=== PATIENT | female | born 1935 | race Caucasian/White ===

== ENCOUNTER 2016-08-23 03:30 | Emergency (ER) | payer MEDICARE, OTHER ==
[~2016-08-23] VITALS: Ht 170.2 cm; Wt 80.0 kg
[2016-08-23 03:36] VITALS: BP 136/64; PULSE 75; RESP 16; TEMP 97.9; O2SAT 92
[2016-08-23] MEDS ORDERED: BLOOD PRESSURE MED (03:42)
[2016-08-23] MEDS ORDERED: THYROID MEDICATION (03:42)
[2016-08-23] MEDS ORDERED: SODIUM CHLOR 0.9% 1000 ML INJ 1,000 ML IV SCH (04:03)
[2016-08-23 04:11] VITALS: RESP 16; O2SAT 94; O2SAT 98
[2016-08-23] MEDS ORDERED: SODIUM CHLORIDE 0.9% FLUSH 10 ML FLUSH IV FLUSH PRN (04:15)
[2016-08-23] MEDS ORDERED: FAMOTIDINE 20 MG/2 ML VIAL IV PUSH ONE (04:15)
[2016-08-23] MEDS ORDERED: ONDANSETRON HCL 4 MG/2 ML VIAL IVP ONE (04:15)
[2016-08-23] MEDS ORDERED: MORPHINE SULFATE 4 MG/ML INJ IV PUSH ONE (04:15)
[2016-08-23 04:24] LABS: AUTOMATED NEUTROPHIL # 7.2 TH/MM3 (1.8-7.7); BASOPHIL # 0.1 TH/MM3 (0-0.2); BASOPHIL % 0.5 % (0.0-2.0); EOSINOPHIL # 0.4 TH/MM3 (0-0.4); EOSINOPHIL % 3.4 % (0.0-4.0); HEMATOCRIT 37.6 % (35.0-46.0); HEMO FLAGS DIFF FINAL; LYMPHOCYTE # 3.4 TH/MM3 (1.0-4.8); MEAN CORPUSCULAR HEMOGLOBIN 27.4 PG (27.0-34.0); MEAN CORPUSCULAR HGB CONC 32.3 % (32.0-36.0); MONO % 3.5 % (0.0-8.0); NEUT % 62.6 % (16.0-70.0); PLATELET COUNT 266 TH/MM3 (150-450); RED BLOOD COUNT 4.43 MIL/MM3 (4.00-5.30); RED CELL DISTRIBUTION WIDTH 13.8 % (11.6-17.2); WHITE BLOOD COUNT 11.4 TH/MM3 (4.0-11.0)
[2016-08-23 04:34] LABS: APTT (PATIENT) 22.9 SEC (24.3-30.1); PROTHROMBIN TIME - PATIENT 10.6 SEC (9.8-11.6)
[2016-08-23 04:50] LABS: POTASSIUM 3.3 MEQ/L (3.5-5.1)
--- NOTE | 2016-08-23 06:07 | RADRPT ---
EXAM DATE/TIME: 08/23/2016 05:03 [place] COMPARISON: No previous studies available for comparison. INDICATIONS : Medial upper quadrant abdomen pain. ORAL CONTRAST: No oral contrast ingested. RADIATION DOSE: 9.96 CTDIvol (mGy) MEDICAL HISTORY : None SURGICAL HISTORY : None. ENCOUNTER: Initial ACUITY: 1 day PAIN SCALE: 8/10 LOCATION: upper quadrant abdomen TECHNIQUE: Volumetric scanning of the abdomen and pelvis was performed. Using automated exposure control and ad justment of the mA and/or kV according to patient size, radiation dose was kept as low as reasonably achievable to obtain optimal diagnostic quality images. DICOM format image data is available electro nically for review and comparison. FINDINGS: LOWER LUNGS: Linear atelectatic changes or scarring in the left base with patchy airspace disease in the right bas e LIVER: Homogeneous density without lesion. There is no dilation of the biliary tree. Patient is status post cholecystectomy. SPLEEN: Normal size without lesion. PANCREAS: Within normal limits. KIDNEYS: Normal in size and shape. There is no mass, stone, or hydronephrosis. Multiple left-sided renal cyst s, the largest in the lower pole measuring 6.5 cm in diameter ADRENAL GLANDS: Within normal limits. VASCULAR: There is no aortic aneurysm. 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 ABDOMINAL WALL: Within normal limits. RETROPERITONEUM: There is no lymphadenopathy. BLADDER: No wall thickening or mass. REPRODUCTIVE: Within normal limits. INGUINAL: There is no lymphadenopathy or hernia. MUSCULOSKELETAL: Within normal limits for patient age. CONCLUSION: 1. "Karyna mesentery". A nonspecific finding that can be seen in entities such as mesenteritis. 2. Patchy airspace disease in the right base could represent an early infiltrate. This can be the cristal ology for referred upper abdominal pain. 3. Diverticula disease of the sigmoid without diverticulitis. 4. Multiple left-sided renal cortical cysts Richi Chavarria MD on August 23, 2016 at 5:42 Board Certified Radiologist. This report was verified electronically.
[2016-08-23 06:29] LABS: BACTERIA, URINE RARE /hpf; BLOOD, URINE TRACE (NEG); COMMENT (UR) CULTURE INDICATED; CULTURE IF INDICATED CULTURE INDICATED; GLUCOSE,URINE NEG (NEG); HYALINE CAST, URINE 1 /lpf (RARE); KETONE, URINE NEG (NEG); MUCUS URINE FEW /lpf (OCC); NITRITE,URINE NEG (NEG); SQUAMOUS EPITHELIAL CELL URINE 1 /hpf (0-5); URINE COLOR YELLOW (YELLW/STRAW)
[2016-08-23] MEDS ORDERED: ZITHTAB PO (06:43)
--- NOTE | 2016-08-23 06:43 | PD ---
HPI Chief Complaint: GI Complaint Time Seen by Provider: 03:57 Travel History International Travel<30 days: No Contact w/Intl Traveler<30days: No Traveled to known affect area: No History of Present Illness HPI Patient is a 80 year old female who comes in complaining of nausea, vomiting and diarrhea. She says her symptoms started after eating some left over food. She says her abdomen hurts all over. She says she was feeling well prior to this starting tonight. She denies chest pain or SOB. She denies fever or chills. PFSH Past Medical History Medical History: Unable to Obtain Diminished Hearing: No Tetanus Vaccination: Never Vaccinated Influenza Vaccination: No Past Surgical History Surgical History: No Previous Surgery Social History Alcohol Use: No Tobacco Use: No Substance Use: No Allergies-Medications (Allergen,Severity, Reaction): Coded Allergies: Sulfa (Verified Allergy, Unknown, 08/23/16) Reported Meds & Prescriptions Reported Meds & Active Scripts Active Zithromax Z-Angel (Azithromycin) 250 Mg Dspk 250 Mg PO DIRECTED 500 MG (2 tabs) day 1, then 1 tab days 2-5. Reported [Blood Pressure Med] [Thyroid Medication] Review of Systems Except as stated in HPI: all other systems reviewed are Neg General / Constitutional: No: Fever, Chills HENT: No: Headaches, Lightheadedness Cardiovascular: No: Chest Pain or Discomfort Respiratory: No: Shortness of Breath Gastrointestinal: Positive: Nausea, Vomiting, Diarrhea, Abdominal Pain Genitourinary: No: Dysuria Skin: No Rash, No Change in Pigmentation Neurologic: No: Weakness, Dizziness Physical Exam Narrative GENERAL: Awake and alert, in obvious discomfort. SKIN: Focused skin assessment warm/dry. HEAD: Atraumatic. Normocephalic. EYES: Pupils equal and round. No scleral icterus. ENT: Mucous membranes pink and moist. NECK: Trachea midline. No JVD. CARDIOVASCULAR: Regular rate and rhythm. No murmur appreciated. RESPIRATORY: No accessory muscle use. Clear to auscultation. Breath sounds equal bilaterally. GASTROINTESTINAL: Abdomen soft, nondistended. Minimal pain in the abdomen on palpation, mostly in the epigastric area. No rebound or guarding. MUSCULOSKELETAL: No obvious deformities. No clubbing. No cyanosis. No edema. NEUROLOGICAL: Awake and alert. No obvious cranial nerve deficits. Motor grossly within normal limits. Normal speech. PSYCHIATRIC: Appropriate mood and affect; insight and judgment normal. Data Data Last Documented VS Orders Basic Metabolic Panel (Bmp) (08/23/16 04:03) Complete Blood Count With Diff (08/23/16 04:03) Lipase (08/23/16 04:03) Lactic Acid (08/23/16 04:03) Prothrombin Time / Inr (Pt) (08/23/16 04:03) Act Partial Throm Time (Ptt) (08/23/16 04:03) Urinalysis - C+S If Indicated (08/23/16 04:03) Ua Includes Microscopic (08/23/16 04:03) Iv Access Insert/Monitor (08/23/16 04:03) Ecg Monitoring (08/23/16 04:03) Oximetry (08/23/16 04:03) Morphine Inj (Morphine Inj) (08/23/16 04:15) Ondansetron Inj (Zofran Inj) (08/23/16 04:15) Sodium Chlor 0.9% 1000 Ml Inj (Ns 1000 M (08/23/16 04:03) Sodium Chloride 0.9% Flush (Ns Flush) (08/23/16 04:15) Electrocardiogram (08/23/16 04:03) Famotidine Inj (Pepcid Inj) (08/23/16 04:15) Ct Abd/Pel W/O Iv Contrast (08/23/16 ) Urine Culture (08/23/16 05:55) Labs Laboratory Tests Test 08/23/16 08/23/16 04:10 05:55 White Blood Count 11.4 TH/MM3 Red Blood Count 4.43 MIL/MM3 Hemoglobin 12.1 GM/DL Hematocrit 37.6 % Mean Corpuscular Volume 85.0 FL Mean Corpuscular Hemoglobin 27.4 PG Mean Corpuscular Hemoglobin 32.3 % Concent Red Cell Distribution Width 13.8 % Platelet Count 266 TH/MM3 Mean Platelet Volume 7.5 FL Neutrophils (%) (Auto) 62.6 % Lymphocytes (%) (Auto) 30.0 % Monocytes (%) (Auto) 3.5 % Eosinophils (%) (Auto) 3.4 % Basophils (%) (Auto) 0.5 % Neutrophils # (Auto) 7.2 TH/MM3 Lymphocytes # (Auto) 3.4 TH/MM3 Monocytes # (Auto) 0.4 TH/MM3 Eosinophils # (Auto) 0.4 TH/MM3 Basophils # (Auto) 0.1 TH/MM3 CBC Comment DIFF FINAL Differential Comment Prothrombin Time 10.6 SEC Prothromb Time International 1.0 RATIO Ratio Activated Partial 22.9 SEC Thromboplast Time Sodium Level 134 MEQ/L Potassium Level 3.3 MEQ/L Chloride Level 99 MEQ/L Carbon Dioxide Level 26.0 MEQ/L Anion Gap 9 MEQ/L Blood Urea Nitrogen 14 MG/DL Creatinine 0.88 MG/DL Estimat Glomerular Filtration 62 ML/MIN Rate Random Glucose 164 MG/DL Lactic Acid Level 2.7 mmol/L Calcium Level 10.0 MG/DL Lipase 139 U/L Urine Color YELLOW Urine Turbidity CLEAR Urine pH 7.0 Urine Specific [place] 1.009 Urine Protein 30 mg/dL Urine Glucose (UA) NEG mg/dL Urine Ketones NEG mg/dL Urine Occult Blood TRACE Urine Nitrite NEG Urine Bilirubin NEG Urine Urobilinogen LESS THAN 2.0 MG/DL Urine Leukocyte Esterase MOD Urine RBC 1 /hpf Urine WBC 9 /hpf Urine Squamous Epithelial 1 /hpf Cells Urine Bacteria RARE /hpf Urine Hyaline Casts 1 /lpf Urine Mucus FEW /lpf Microscopic Urinalysis Comment CULTURE INDICATED MDM Medical Decision Making Medical Screen Exam Complete: Yes Emergency Medical Condition: Yes Interpretation(s) ECG shows NSR at 71, no ST elevation of depression Differential Diagnosis Gastroenteritis versus colitis versus bowel obstruction as UTI Narrative Course Patient is an 80-year-old female comes in complaining of nausea, vomiting, diarrhea and abdominal pain. Exam shows soft abdomen, minimally tender mostly in the epigastric area. IV established, labs sent. Labs show white blood cell count of 11.4, no other acute abnormalities. CT abdomen and pelvis shows possible patchy airspace disease. Patient is not having shortness of breath or cough. She says she did have an upper respiratory infection a few weeks ago. We'll treat with azithromycin. She is given IV fluids, Zofran, morphine. She is feeling better. She is able to drink water without vomiting. She'll be discharged home with her family. She is advised to follow-up with her primary care doctor on Thursday. Advised to drink plenty of fluids. Advised to eat a bland diet if she is feeling hungry. Advised to return to the emergency department as needed for any worsening symptoms. She and her family are comfortable with discharge at this time. Diagnosis Primary Impression: Nausea & vomiting Qualified Code: R11.2 - Non-intractable vomiting with nausea, unspecified vomiting type Additional Impression: Pneumonia Qualified Code: J18.1 - Pneumonia of lower lobe due to infectious organism, unspecified laterality Patient Instructions: Acute Nausea and Vomiting (ED), Community Acquired Pneumonia (ED), General Instructions Additional Instructions: Drink plenty of fluids. Eat a bland diet. Take all the antibiotic. Follow-up with her doctor. Return to the emergency department as needed for any worsening symptoms. Scripts Azithromycin (Zithromax Z-Angel)250 Mg [id number] Mg PO DIRECTED #1 DSPK Ref 0 500 MG (2 tabs) day 1, then 1 tab days 2-5. Prov:Charlotte Zendejas MD 08/23/16 Disposition: 01 DISCHARGE HOME Condition: Stable Charlotte Zendejas MD Aug 23, 2016 06:43 500 MG (2 tabs) day 1, then 1 tab days 2-5. Prov:Charlotte Zendejas MD 08/23/16 Disposition: 01 DISCHARGE HOME Condition: Stable Charlotte Zendejas MD Aug 23, 2016 06:43
--- NOTE | 2016-08-23 15:32 | EKG ---
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
== END 2016-08-23 07:11 | disposition home or self-care (01) ==
LOC: NEPE 03:30
DX: J18.1 Lobar pneumonia, unspecified organism (principal); R11.2 Nausea with vomiting, unspecified; I44.0 Atrioventricular block, first degree
CPT/HCPCS: 74176; 80048; 81001; 83605; 83690; 85025; 85610; 85730; 87086; 93005; 96374; 96375; 99285; J2270; J2405; J7030